=== PATIENT | female | born 1970 | race Caucasian/White ===

== ENCOUNTER → 2017-09-08 | Outpatient (CLI) | payer OTHER, SELFPAY | PROVIDERS: Family Provider Internal Medicine Adolescent Medicine; Visit Provider Nurse Practitioner | DX: Z02.1 Encounter for pre-employment examination (principal) ==

== ENCOUNTER → 2018-01-06 10:34 | Outpatient (CLI) | payer OTHER, SELFPAY ==
[2018-01-06 11:13] LABS: Basophils # 0.1 K/mm3 (0-0.2); Basophils % 0.8 % (0.1-2.0); Eosinophils # 0.8 K/mm3 (0.0-0.4); Eosinophils % 11.8 % (0.1-12.0); Hematocrit 40.1 % (37.0-47.0); Hemoglobin 12.4 g/dL (12.2-16.2); Lymphocytes # 1.2 K/mm3 (0.7-4.5); Lymphocytes % 18.9 K/mm3 (10-50); Mean Corpuscular HGB Conc 30.8 g/dL (31.8-35.4); Mean Corpuscular Hemoglobin 24.4 pg (27.0-31.2); Mean Corpuscular Volume 79.3 fl (81-99); Mean Platelet Volume 8.3 fl (7.4-10.4); Monocytes # 0.4 K/mm3 (0.1-1.0); Monocytes % 6.4 % (1.7-9.3); Neutrophils # 4.1 K/mm3 (1.8-7.8); Neutrophils % 62.2 % (37.0-80.0); Platelet Count 230 K/mm3 (142-424); Red Blood Count 5.06 M/mm3 (4.20-5.40); Red Cell Distribution Width 14.6 % (11.5-17.5); White Blood Count 6.5 K/mm3 (4.8-10.8)
[2018-01-06 12:04] LABS: Erythrocyte Sedimentation Rate 14 mm/hr (0-20)
[2018-01-06 12:12] LABS: Alanine Aminotransferase 33 U/L (12-78); Albumin Level 3.7 gm/dL (3.4-5.0); Albumin/Globulin Ratio 1.1 (1.1-1.8); Alkaline Phosphatase 155 U/L (46-116); Anion Gap 14.5 mEq/L (5-15); Aspartate Amino Transferase 34 U/L (15-37); Bilirubin,Total 0.3 mg/dL (0.2-1.0); Blood Urea Nitrogen 13 mg/dL (7-18); Calcium 8.9 mg/dL (8.5-10.1); Carbon Dioxide 26 mmol/L (21.0-32.0); Chloride 105 mmol/L (98-107); Chol/HDL Ratio 3.3 (1-3.5); Cholesterol 244 mg/dL (140-200); Creatinine,Serum 0.66 mg/dL (0.55-1.02); Estimated Glomerular Filt Rate 97 ml/min (>60); Free Thyroxine Index 2.3 ug/dL (5.93-13.13); GFR (African American) 117 ML/MIN (>60); Globulin 3.5 gm/dl (1.3-3.2); Glucose 88 mg/dL (74-106); HDL Cholesterol 74 mg/dL (29-89); LDL Cholesterol 153 mg/dL (0-130); Potassium 4.5 mmoL/L (3.5-5.1); Sodium 141 mmol/L (136-145); T4 (Thyroxine) 7.6 ug/dl (4.7-13.3); Thyroid Stimulating Hormone 3.95 uIU/ml (0.358-3.740); Total Protein,Serum 7.2 gm/dL (6.4-8.2); Triglycerides 83 mg/dL (30-200); Triiodothryronine (T3) Uptake 30 % (31-39); VLDL Cholesterol 17 mg/dL (0-40)
[2018-01-08 12:08] LABS: PTT-LA 39.2 sec (0.0-51.9); dRVVT 41.2 sec (0.0-47.0)
[2018-01-08 18:49] LABS: Vitamin B12 1057 pg/mL (232-1245); Vitamin D 25 Hydroxy 29.6 ng/mL (30.0-100.0)
[2018-01-08 18:51] LABS: Lupus Reflex Interpretation Comment: (.)
== END ==
PROVIDERS: Visit Provider Internal Medicine Adolescent Medicine
DX: R53.83 Other fatigue (principal); E78.2 Mixed hyperlipidemia
CPT/HCPCS: 36415; 80053; 80061; 82607; 82652; 84436; 84443; 84479; 85025; 85613; 85651

== ENCOUNTER → 2019-05-16 14:54 | Outpatient (CLI) | payer OTHER, SELFPAY ==
[2019-05-16 16:32] LABS: Basophils % 0.7 % (0.1-2.0); Eosinophils # 0.6 K/mm3 (0.0-0.4); Eosinophils % 10.6 % (0.1-12.0); Hematocrit 37.5 % (37.0-47.0); Hemoglobin 11.9 g/dL (12.2-16.2); Lymphocytes # 1.2 K/mm3 (0.7-4.5); Lymphocytes % 22.8 % (10-50); Mean Corpuscular HGB Conc 31.7 g/dL (31.8-35.4); Mean Corpuscular Hemoglobin 25.7 pg (27.0-31.2); Mean Platelet Volume 7.7 fl (7.4-10.4); Monocytes # 0.3 K/mm3 (0.1-1.0); Monocytes % 5.1 % (1.7-9.3); Neutrophils # 3.2 K/mm3 (1.8-7.8); Neutrophils % 60.9 % (37.0-80.0); Platelet Count 300 K/mm3 (142-424); Red Blood Count 4.62 M/mm3 (4.20-5.40); Red Cell Distribution Width 15.9 % (11.5-17.5); White Blood Count 5.3 K/mm3 (4.8-10.8)
[2019-05-16 16:41] LABS: Alanine Aminotransferase 35 U/L (12-78); Alkaline Phosphatase 184 U/L (46-116); Aspartate Amino Transferase 32 U/L (15-37); Bilirubin,Total 0.3 mg/dL (0.2-1.0); Blood Urea Nitrogen 8 mg/dL (7-18); Calcium 8.9 mg/dL (8.5-10.1); Chol/HDL Ratio 3.8 (1-3.5); Cholesterol 249 mg/dL (140-200); Creatinine,Serum 0.83 mg/dL (0.55-1.02); Estimated Glomerular Filt Rate 74 ml/min (>60); Ferritin 11 ng/mL (8-388); Free Thyroxine Index 2.8 ug/dL (5.93-13.13); GFR (African American) 89 ML/MIN (>60); Glucose 99 mg/dL (74-106); HDL Cholesterol 65 mg/dL (29-89); LDL Cholesterol 152 mg/dL (0-130); Magnesium 2.2 mg/dL (1.4-2.2); T4 (Thyroxine) 9.6 ug/dl (4.7-13.3); Thyroid Stimulating Hormone 2.15 uIU/ml (0.358-3.740); Triglycerides 162 mg/dL (30-200); Triiodothryronine (T3) Uptake 29 % (31-39); VLDL Cholesterol 32 mg/dL (0-40)
[2019-05-16 16:56] LABS: Albumin/Globulin Ratio 1.1 (1.1-1.8); Anion Gap 13.4 mEq/L (5-15); Carbon Dioxide 27 mmol/L (21.0-32.0); Chloride 103 mmol/L (98-107); Globulin 3.6 gm/dl (1.3-3.2); Potassium 4.4 mmoL/L (3.5-5.1); Sodium 139 mmol/L (136-145); Total Protein,Serum 7.6 gm/dL (6.4-8.2)
[2019-05-18 14:20] LABS: FSH 9.9 mIU/mL (.); Vitamin B12 1007 pg/mL (232-1245); Vitamin D 25 Hydroxy 23.7 ng/mL (30.0-100.0)
== END ==
PROVIDERS: Visit Provider Internal Medicine Adolescent Medicine
DX: E78.2 Mixed hyperlipidemia (principal); N92.1 Excessive and frequent menstruation with irregular cycle
CPT/HCPCS: 36415; 80053; 80061; 82607; 82652; 82728; 83001; 83002; 83735; 84436; 84443; 84479; 85025

== ENCOUNTER → 2020-09-08 11:56 | Outpatient (CLI) | payer SELFPAY ==
[2020-09-08 12:33] LABS: Basophils # 0.1 K/mm3 (0-0.2); Basophils % 1.1 % (0.1-2.0); Eosinophils # 0.7 K/mm3 (0.0-0.4); Eosinophils % 11.1 % (0.1-12.0); Hemoglobin 15.1 g/dL (12.2-16.2); Lymphocytes # 1.1 K/mm3 (0.7-4.5); Lymphocytes % 18.1 % (10-50); Mean Corpuscular HGB Conc 33.6 g/dL (31.8-35.4); Mean Corpuscular Hemoglobin 29.8 pg (27.0-31.2); Mean Corpuscular Volume 88.7 fl (81-99); Mean Platelet Volume 8.4 fl (7.4-10.4); Monocytes # 0.5 K/mm3 (0.1-1.0); Monocytes % 7.6 % (1.7-9.3); Neutrophils # 3.9 K/mm3 (1.8-7.8); Neutrophils % 62.1 % (37.0-80.0); Platelet Count 230 K/mm3 (142-424); Red Blood Count 5.07 M/mm3 (4.20-5.40); Red Cell Distribution Width 14.8 % (11.5-17.5); White Blood Count 6.3 K/mm3 (4.8-10.8)
[2020-09-08 13:26] LABS: Chloride 102 mmol/L (98-107); Potassium 4.2 mmoL/L (3.5-5.1); Sodium 137 mmol/L (136-145)
[2020-09-08 13:29] LABS: Alanine Aminotransferase 28 U/L (12-78); Albumin Level 4.3 g/dl (3.5-5.0); Albumin/Globulin Ratio 1.5 (1.1-1.8); Alkaline Phosphatase 157 U/L (38-126); Anion Gap 9.2 mEq/L (5-15); Aspartate Amino Transferase 45 U/L (14-36); Bilirubin,Total 0.7 mg/dl (0.2-1.3); Blood Urea Nitrogen 16 mg/dl (7-17); Calcium 9.4 mg/dl (8.4-10.2); Carbon Dioxide 30 mmol/L (22.0-30.0); Estimated Glomerular Filt Rate 53 ml/min (>60); GFR (African American) 64 ML/MIN (>60); Globulin 2.8 g/dL (1.3-3.2); Glucose 83 mg/dl (74-100); Total Protein,Serum 7.1 g/dl (6.3-8.2)
[2020-09-11 09:10] LABS: QuantiFERON-TB Gold Plus Negative (Negative)
== END ==
PROVIDERS: Visit Provider Internal Medicine Adolescent Medicine
DX: Z02.1 Encounter for pre-employment examination (principal); E55.9 Vitamin D deficiency, unspecified
CPT/HCPCS: 36415; 80053; 82306; 85025; 86480

== ENCOUNTER → 2021-08-10 12:58 | Outpatient (CLI) | payer SELFPAY ==
[2021-08-10 13:28] LABS: Basophils # 0.1 K/mm3 (0-0.2); Basophils % 1.2 % (0.1-2.0); Eosinophils # 0.8 K/mm3 (0.0-0.4); Eosinophils % 13.9 % (0.1-12.0); Hematocrit 47.2 % (37.0-47.0); Lymphocytes # 1.1 K/mm3 (0.7-4.5); Mean Corpuscular Hemoglobin 29.9 pg (27.0-31.2); Mean Corpuscular Volume 88.1 fl (81-99); Mean Platelet Volume 9.5 fl (7.4-10.4); Monocytes # 0.4 K/mm3 (0.1-1.0); Monocytes % 6.8 % (1.7-9.3); Neutrophils # 3.4 K/mm3 (1.8-7.8); Neutrophils % 59.2 % (37.0-80.0); Platelet Count 266 K/mm3 (142-424); Red Blood Count 5.35 M/mm3 (4.20-5.40); Red Cell Distribution Width 13.8 % (11.5-17.5); White Blood Count 5.8 K/mm3 (4.8-10.8)
[2021-08-10 14:17] LABS: Hemoglobin A1C 4.9 % (4.0-6.0)
[2021-08-10 16:38] LABS: Chloride 101 mmol/L (98-107); Sodium 138 mmol/L (136-145)
[2021-08-10 16:39] LABS: Potassium 4.8 mmoL/L (3.5-5.1)
[2021-08-10 16:41] LABS: Alanine Aminotransferase 37 U/L (12-78); Albumin Level 4.7 g/dl (3.5-5.0); Albumin/Globulin Ratio 1.8 (1.1-1.8); Alkaline Phosphatase 224 U/L (38-126); Anion Gap 11.8 mEq/L (5-15); Aspartate Amino Transferase 54 U/L (14-36); Bilirubin,Total 0.3 mg/dl (0.2-1.3); Blood Urea Nitrogen 14 mg/dl (7-17); Calcium 9.5 mg/dl (8.4-10.2); Carbon Dioxide 30 mmol/L (22.0-30.0); Estimated Glomerular Filt Rate 89 ml/min (>60); GFR (African American) 108 ML/MIN (>60); Globulin 2.6 g/dL (1.3-3.2); Glucose 90 mg/dl (74-100); Total Protein,Serum 7.3 g/dl (6.3-8.2)
== END ==
PROVIDERS: Visit Provider Internal Medicine Adolescent Medicine
DX: R74.8 Abnormal levels of other serum enzymes (principal); R73.9 Hyperglycemia, unspecified
CPT/HCPCS: 36415; 80053; 83036; 85025